=== PATIENT | male | born 1995 ===

== ENCOUNTER 2018-03-26 16:38 | Emergency (ER) | payer OTHER ==
[2018-03-26 18:05] VITALS: BP 112/69
[2018-03-26] MEDS ORDERED: Eye Irrigation Solution 30 ML BOTTLE RIGHT EYE ONE (18:24)
--- NOTE | 2018-03-26 19:41 | UC ---
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 Pt reports that at work, he had cow manure splashed into right eye. Pt woke this afternoon with c/o eye lid swelling, purulent discharge and eye redness in right eye. - History of Current Complaint Chief Complaint: UCEye Stated Complaint: WC - RIGHT EYE CONCERN Time Seen by Provider: 03/26/18 18:17 Hx Obtained From: Patient, Tractor Trailer Technician Onset/Duration: Gradual Onset, Lasting Hours, Still Present Timing: Constant Severity Initially: Mild Severity Currently: Moderate Pain Intensity: 6 Pain Scale Used: 0-10 Numeric Character: Foreign Body Sensation Aggravating Factor(s): Light, Blinking Alleviating Factor(s): Nothing Associated Signs And Symptoms: Positive: Drainage (Purulent) - Risk Factors Penetrating Injury Risk Factor: Negative Globe Rupture Risk Factors: Negative Acute Glaucoma Risk Factors: Negative Optic Artery Occlusion Risk Factors: Negative - Allergies/Home Medications Allergies/Adverse Reactions: Allergies Allergy/AdvReac Type Severity Reaction Status Date / Time No Known Allergies Allergy Verified 03/26/18 18:05 PMH/Surg Hx/FS Hx/Imm Hx Previously Healthy: Yes - Surgical History Surgical History: None - Family History Known Family History: Positive: Cardiac Disease - Social History Occupation: Employed Full-time Lives: With Family Alcohol Use: None Substance Use Type: None Smoking Status (MU): Never Smoked Tobacco Have You Smoked in the Last Year: No Review of Systems Constitutional: Negative Skin: Negative Eyes: Blurred Vision, Drainage, Eye Redness, Photophobia ENT: Negative Respiratory: Negative Cardiovascular: Negative Gastrointestinal: Negative Genitourinary: Negative Motor: Negative Neurovascular: Negative Musculoskeletal: Negative Neurological: Negative Psychological: Negative Is Patient Immunocompromised?: No All Other Systems Reviewed And Are Negative: Yes Physical Exam Triage Information Reviewed: Yes Appearance: Pain Distress Vital Signs: Initial Vital Signs Temp 98.9 F 03/26/18 17:57 Pulse 65 03/26/18 17:57 Resp 16 03/26/18 17:57 BP 112/69 03/26/18 17:57 Pulse Ox 100 03/26/18 17:57 Vital Signs Reviewed: Yes Eyes: Positive: Conjunctiva Inflamed, Discharge - yellow, Other: - upper eye lid swelling ENT Exam: Normal Dental Exam: Normal Neck exam: Normal Respiratory: Positive: No respiratory distress Musculoskeletal Exam: Normal Neurological Exam: Normal Psychological Exam: Normal Skin Exam: Normal Eye Complaint Course/Dx - Differential Dx/Diagnosis Differential Diagnosis/HQI/PQRI: Conjunctivitis, Corneal Abrasion, Foreign Body Provider Diagnoses: conjunctivitis right eye Discharge - Sign-Out/Discharge Documenting (check all that apply): Patient Departure - Discharge Plan Condition: Stable Disposition: HOME Prescriptions: Ofloxacin 0.3%(Ophth)(Nf) [Ocuflox OPTH 0.3%(NF)] 2 drop RIGHT EYE Q6H 7 Days # 1 btl Patient Education Materials: Conjunctivitis (ED) Print Language: INDONESIAN Referrals: [facility] [Outside] - If Needed No Primary Care Phys,NOPCP [Primary Care Provider] - Roger Huber MD [Medical Doctor] - If Needed Additional Instructions: Per institutional requirements, I have reviewed the chart, however, I was not consulted specifically or made aware of this patient by the above midlevel provider. I did not personally evaluate, interact with , or disposition this patient. - Billing Disposition and Condition Condition: STABLE Disposition: Home
== END 2018-03-26 18:44 | disposition home or self-care (01) ==
LOC: UCCORT 16:38
DX: H10.9 Unspecified conjunctivitis (principal)
CPT/HCPCS: 99202; G0463